=== PATIENT | male | born 1985 | race Hispanic/Latino ===

== ENCOUNTER 2016-08-19 20:57 | Emergency (ER) | payer OTHER ==
[2016-08-19 21:05] VITALS: PULSE 88; RESP 18; TEMP 97.8; O2SAT 99
[2016-08-19] MEDS ORDERED: Albuterol-Ipratrop 3 mg / 0.5 (3 ml) UD INH STA (21:27)
--- NOTE | 2016-08-19 21:46 | ED PDOC ---
HPI: CCC, URI, Sore Throat Time Seen by Provider: 08/19/16 21:06 Chief Complaint (Nursing): Cough, Cold, Congestion Chief Complaint (Provider): Cough, Cold, Congestion History Per: Patient History/Exam Limitations: no limitations Have you had recent travel within the past 21 days to any of the following countries: [place], [place], [place] or [place]?: No Onset/Duration Of Symptoms: Days Current Symptoms Are (Timing): Still Present Location Of Pain: Throat, Sinus/es Associated Symptoms: Sore Throat, Cough, Sputum, Sinus Drainage, Nasal Congestion. denies: Fever, Chills, Nausea, Vomiting, Diarrhea Ear Symptoms: Bilateral: None Severity: Mild Additional Complaint(s): 30 y/o male patient presenting to the ED with cough and congestion. PT states the symptoms began a few days ago and it started with a tickling in his throat and turned into lots of mucus, sinus pain and pressure, dry heaving, difficulty sleeping, pain in the back of throat, and sweating from coughing. PT states that he took Mucinex and Sudafed yesterday which made his appetite dissipate. He denies any fever or ear pain. PT denies any allergies to medications, and no past medical history. Past Medical History Reviewed: Historical Data, Nursing Documentation, Vital Signs Vital Signs: Last Vital Signs Temp 97.8 F 08/19/16 20:59 Pulse 88 08/19/16 20:59 Resp 18 08/19/16 20:59 BP 126/76 08/19/16 22:09 Pulse Ox 99 08/19/16 22:04 - Medical History PMH: No Chronic Diseases - Surgical History Surgical History: No Surg Hx - Family History Family History: States: Unknown Family Hx - Home Medications Home Medications: Ambulatory Orders Medication Instructions Recorded Azithromycin [Zithromax] 250 mg PO DAILY #6 tab 08/19/16 Hydrocodone/Chlorpheniramine 5 ml PO HS #80 ml 08/19/16 [Tussionex] Methylprednisolone [Medrol Dose 4 mg PO DAILY #21 mg 08/19/16 Pack (21 tabs)] Promethazine HCl/Codeine 5 ml PO HS #80 ml 08/19/16 [Prometh-Codein 6.25-10 mg/5 ml] - Allergies Allergies/Adverse Reactions: Allergies Allergy/AdvReac Type Severity Reaction Status Date / Time No Known Allergies Allergy Verified 08/19/16 20:59 Review of Systems ROS Statement: Except As Marked, All Systems Reviewed And Found Negative Constitutional: Negative for: Fever, Chills ENT: Positive for: Nose Discharge, Nose Congestion, Throat Pain, Throat Swelling. Negative for: Ear Pain Respiratory: Positive for: Cough. Negative for: Wheezing Gastrointestinal: Negative for: Nausea, Vomiting, Diarrhea Genitourinary Male: Negative for: Dysuria, Frequency Physical Exam - Reviewed Nursing Documentation Reviewed: Yes Vital Signs Reviewed: Yes - Physical Exam Appears: Positive for: Non-toxic, No Acute Distress Head Exam: Positive for: ATRAUMATIC, NORMAL INSPECTION, NORMOCEPHALIC Skin: Positive for: Normal Color, Warm ENT: Positive for: Sinus Pain/Drainage, Nasal Congestion, Tonsillar Swelling Neck: Positive for: Normal, Painless ROM, Supple Cardiovascular/Chest: Positive for: Regular Rate, Rhythm. Negative for: Murmur Respiratory: Positive for: Normal Breath Sounds. Negative for: Respiratory Distress Neurologic/Psych: Positive for: Alert, Oriented. Negative for: Motor/Sensory Deficits - ECG O2 Sat by Pulse Oximetry: 99 (RA) Pulse Ox Interpretation: Normal Medical Decision Making Medical Decision Making: Time: 2105 Initial impression: Upper Respiratory Infection Initial plan: --Albuterol 3ml --Peak Flow Pre/Post TX Repeat BP: 124/78 Given RX to use as directed. Advised to follow up with PCP, return to ED with any concerns Scribe Attestation: Documented by Amna Toledo acting as a scribe for OLIVIA Fleming MD Scribe Attestation: All medical record entries made by the Scribe were at my direction and personally dictated by me. I have reviewed the chart and agree that the record accurately reflects my personal performance of the history, physical exam, medical decision making, and the department course for this patient. I have also personally directed, reviewed, and agree with the discharge instructions and disposition. Disposition - Clinical Impression Clinical Impression: Upper respiratory infection - Patient ED Disposition Is Patient to be Admitted: No - Disposition Disposition: Routine/Home Disposition Time: 00:15 Condition: STABLE Prescriptions: Azithromycin [Zithromax] 250 mg PO DAILY #6 tab Hydrocodone/Chlorpheniramine [Tussionex] 5 ml PO HS #80 ml Methylprednisolone [Medrol Dose Pack (21 tabs)] 4 mg PO DAILY #21 mg Promethazine HCl/Codeine [Prometh-Codein 6.25-10 mg/5 ml] 5 ml PO HS #80 ml Instructions: Upper Respiratory Infection (ED) - POA Present On Arrival: None
[2016-08-19 22:17] VITALS: BP 126/76
--- NOTE | 2016-08-22 12:45 | CARD ---
APPROVED REPORT EKG Measurement Heart [id number] <Conclusion> Normal sinus rhythm Normal ECG
== END 2016-08-19 22:09 | disposition home or self-care (01) ==
LOC: H.ER 20:57
DX: J06.9 Acute upper respiratory infection, unspecified (principal)

== ENCOUNTER 2016-09-01 16:40 | Emergency (ER) | payer OTHER ==
[2016-09-01 16:46] VITALS: BP 120/86; PULSE 124; RESP 18; TEMP 97.6; O2SAT 100
--- NOTE | 2016-09-01 16:57 | ED PDOC ---
HPI: CCC, URI, Sore Throat Time Seen by Provider: 09/01/16 16:57 Chief Complaint (Nursing): Cough, Cold, Congestion Chief Complaint (Provider): cough History Per: Patient Additional Complaint(s): 30-year-old male with history of asthma presents to emergency department with cough and chest congestion that started yesterday. Patient denies fever or chills. Patient takes symbicort daily for his asthma but he states this has not helped his symptoms. Patient denies any chest pain. He has a tickle in his throat secondary to persistent coughing. No recent travel. Past Medical History Reviewed: Historical Data, Nursing Documentation, Vital Signs Vital Signs: Last Vital Signs Temp 97.6 F 09/01/16 16:44 Pulse 124 H 09/01/16 16:44 Resp 18 09/01/16 16:44 BP 120/86 09/01/16 16:44 Pulse Ox 100 09/01/16 18:58 - Medical History PMH: Asthma - Surgical History Surgical History: No Surg Hx - Family History Family History: States: No Known Family Hx - Living Arrangements Living Arrangements: With Friends/Others - Social History Current smoker - smoking cessation education provided: No Alcohol: None Drugs: Denies - Home Medications Home Medications: Ambulatory Orders Medication Instructions Recorded Albuterol HFA [Ventolin HFA 90 1 - 2 puff INH Q4 PRN 09/01/16 mcg/actuation (8 g)] Benzonatate 200 mg PO TID PRN #20 capsule 09/01/16 Levofloxacin [Levaquin] 500 mg PO DAILY #7 tablet 09/01/16 Prednisone 50 mg PO DAILY #5 tablet 09/01/16 - Allergies Allergies/Adverse Reactions: Allergies Allergy/AdvReac Type Severity Reaction Status Date / Time No Known Allergies Allergy Verified 09/01/16 16:43 Curb-65 Severity Score - CURB-65 Severity Score Confusion: No Respiratory Rate greater than/equal to 30: No Systolic BP <90 or Diastolic BP less than/equal 60mmHg: No Age >64: No Curb-65 Score: 0 Percentage 30-day mortality: 0.6% Review of Systems ROS Statement: Except As Marked, All Systems Reviewed And Found Negative Constitutional: Negative for: Fever, Chills Cardiovascular: Negative for: Chest Pain Respiratory: Positive for: Cough, Wheezing Gastrointestinal: Negative for: Nausea, Vomiting Neurological: Negative for: Headache Physical Exam - Reviewed Nursing Documentation Reviewed: Yes Vital Signs Reviewed: Yes - Physical Exam Appears: Positive for: Well, Non-toxic, No Acute Distress Skin: Negative for: Rash Eye Exam: Positive for: Normal appearance Cardiovascular/Chest: Positive for: Regular Rate, Rhythm Respiratory: Positive for: Wheezing. Negative for: Accessory Muscle Use, Crackles, Rales, Respiratory Distress Extremity: Negative for: Pedal Edema Neurologic/Psych: Positive for: Alert, Oriented - ECG Interpretation Of ECG: Sinus tach 104, no acute finding, reviewed by PA and ED attending O2 Sat by Pulse Oximetry: 100 Pulse Ox Interpretation: Normal - Other Rad CXR X-Ray: Interpreted by Me, Viewed By Me X-Ray Interpretation: no acute infiltrate Nebulizer Treatments/Peak Flow - Duonebs Number of Bronchodilator Doses given?: 1 (duoneb) - Steroid Treatment Steroid: IV (IM 125 mg solumedrol) Medical Decision Making Medical Decision Makin30 year old with cough and asthma exacerbation Plan: CXR Duoneb x 1 125 mg IM solumedrol Patient was seen on 08/19/16 and was sent home with cough medication, Zithromax and Medrol Dosepak. Patient states that he did feel better after taking these medications but symptoms returned again yesterday. Patient feels better after meds given in ED. Patient requesting strong cough medication, specifically Tussionex, as this is the only medication that works for his cough. Patient was prescribed Tussionex on last visit here in ED. I reviewed rx history and patient has filled multiple rx's for percocet and tussionex in recent past. Report from [facility] was discussed with patient and he claims he never filled any of these meds. He is concerned maybe someone stole his identity. Patient made aware that no narcotic rx can be written at this time. Prescriptions given for Levaquin, prednisone and Tessalon Perles. Patient was referred to medicine on-call for follow-up, he states he is new to this area and does not have primary doctor. Disposition - Clinical Impression Clinical Impression: Upper respiratory infection, Asthma attack - Patient ED Disposition Is Patient to be Admitted: No Counseled Patient/Family Regarding: Studies Performed, Diagnosis, Need For Followup, Rx Given - Disposition Referrals: Bradly Ceballos MD [Staff Provider] - Disposition: Routine/Home Disposition Time: 18:45 Condition: STABLE Additional Instructions: Take prescription medicine as directed. Follow up with primary doctor as soon as possible. Prescriptions: Benzonatate 200 mg PO TID PRN #20 capsule PRN Reason: Cough Levofloxacin [Levaquin] 500 mg PO DAILY #7 tablet Prednisone 50 mg PO DAILY #5 tablet Instructions: Asthma (ED), Upper Respiratory Infection (ED)
[2016-09-01] MEDS ORDERED: Albuterol-Ipratrop 3 mg / 0.5 (3 ml) UD INH STA (17:01)
[2016-09-01] MEDS ORDERED: Albuterol-Ipratrop 3 mg / 0.5 (3 ml) UD ONE (17:03)
--- NOTE | 2016-09-02 08:35 | CARD ---
APPROVED REPORT EKG Measurement Heart [id number] <Conclusion> Sinus tachycardia Otherwise normal ECG
--- NOTE | 2016-09-02 10:56 | RAD ---
HISTORY: cough COMPARISON: No prior. TECHNIQUE: Chest PA and lateral FINDINGS: LUNGS: The lungs are well inflated and clear. PLEURA: No significant pleural effusion identified. No pneumothorax apparent. CARDIOVASCULAR: Normal. OSSEOUS STRUCTURES: No significant abnormalities. VISUALIZED UPPER ABDOMEN: Normal. OTHER FINDINGS: None. IMPRESSION: No active pulmonary disease.
== END 2016-09-01 19:00 | disposition home or self-care (01) ==
LOC: H.ER 16:40
DX: J45.909 Unspecified asthma, uncomplicated (principal); J06.9 Acute upper respiratory infection, unspecified